=== PATIENT | female | born 2000 | race Caucasian/White ===

== ENCOUNTER 2023-07-20 12:53 | Emergency (ER) | payer SELFPAY ==
[~2023-07-20] VITALS: Ht 154.9 cm; Wt 40.9 kg
[2023-07-20] MEDS ORDERED: GABAPENTIN100 MG PO (13:13)
[2023-07-20 16:55] VITALS: BP 114/88
== END 2023-07-20 16:00 | disposition home or self-care (01) ==
LOC: ED 12:53
DX: R07.89 Other chest pain (principal); Z91.040 Latex allergy status; V89.2XXA Person injured in unspecified motor-vehicle accident, traffic, initial encounter; Y92.410 Unspecified street and highway as the place of occurrence of the external cause